=== PATIENT | female | born 1990 | race Caucasian/White ===

== ENCOUNTER 2020-04-25 01:22 | Emergency (ER) | payer SELFPAY ==
[~2020-04-25] VITALS: Ht 167.6 cm; Wt 79.4 kg
[2020-04-25 01:50] VITALS: BP 129/73
--- NOTE | 2020-04-25 01:52 | NUR ---
To ED bed 11
--- NOTE | 2020-04-25 01:56 | NUR ---
Dr. Begum examining patient.
--- NOTE | 2020-04-25 02:07 | NUR ---
PT C/O POSSIBLE ABSCESS TO ANUS X 1 YEAR, HAS GOTTEN BIGGER OVER LAST FEW MONTHS. DENIES ANY PAIN, DENIES ANY BLEEDING. DENIES CONSTIPATION. PT PLACED ON GOWN, BED IN LOWEST POAITION AND SIDERAIL UP X 1. NKA NO HX
[2020-04-25 02:11] VITALS: BP 129/73
--- NOTE | 2020-04-25 02:11 | NUR ---
Patient discharged with v/s stable. Written and verbal after care instructions given and explained. Patient verbalized understanding. Ambulatory with steady gait. All questions addressed prior to discharge. Advised to follow up with PMD.
== END 2020-04-25 02:11 | disposition home or self-care (01) ==
LOC: MED 01:22
DX: K64.9 Unspecified hemorrhoids (principal)
CPT/HCPCS: 99281; 99282